=== PATIENT | female | born 1995 ===

== ENCOUNTER 2024-11-02 15:22 | Inpatient (IN) | payer OTHER ==
[~2024-11-02] VITALS: Ht 160 cm; Wt 79.5 kg
[2024-11-02 18:38] VITALS: BP 133/86
[2024-11-02 20:02] VITALS: BP 133/86
[2024-11-02] MEDS ORDERED: Acetaminophen 325 MG TABLET PO PRN (20:05)
[2024-11-02] MEDS ORDERED: DiphenhydrAMINE HCl 50 MG Cap PO PRN (20:05)
[2024-11-02] MEDS ORDERED: DiphenhydrAMINE HCl 50 MG/ML 1ML Vial IV PRN (20:05)
[2024-11-02] MEDS ORDERED: FLU VACC TS2024-25(6MOS UP)/PF 45 MCG/0.5 ML SYRINGE IM ONE (20:05)
[2024-11-02] MEDS ORDERED: Calcium Carbonate 500 MG Tab Chew PO PRN (20:05)
[2024-11-02] MEDS ORDERED: Aluminum Hydroxide 320MG/5ML 473 ML PO PRN (20:05)
[2024-11-02] MEDS ORDERED: Haloperidol Lactate Inj. 5 MG/ML Injection IM PRN (20:05)
[2024-11-02] MEDS ORDERED: LORazepam 2 MG Tab PO PRN (20:10)
[2024-11-02] MEDS ORDERED: Melatonin 3 MG Tab PO PRN (20:10)
[2024-11-02] MEDS ORDERED: TraZODone HCl 50 MG Tab PO PRN (20:10)
[2024-11-02] MEDS ORDERED: Ondansetron 4 MG SoluTab MM PRN (20:10)
[2024-11-02] MEDS ORDERED: LORazepam 2 MG/ML 1ML Injection IM PRN (20:10)
[2024-11-02] MEDS ORDERED: OLANZapine ODT 10 MG Tab MM PRN (20:10)
[2024-11-02] MEDS ORDERED: Polyethylene Glycol 3350 17 gm PO PRN (20:10)
[2024-11-02] MEDS ORDERED: Haloperidol 5 MG Tab PO PRN (20:15)
[2024-11-02] MEDS ORDERED: Ibuprofen 600 MG Tab PO PRN (20:15)
[2024-11-02] MEDS ORDERED: OLANZapine 10 MG Tab PO SCH (21:00)
[2024-11-02] MEDS ORDERED: LEVSOD25 PO (21:47)
[2024-11-02] MEDS ORDERED: CLOZAPINE ODT200 MG PO (21:58)
[2024-11-02] MEDS ORDERED: DIVA500ER PO (22:06)
[2024-11-02] MEDS ORDERED: GABA300 PO (22:13)
[2024-11-02] MEDS ORDERED: Vitamin D1000 UNI1 PO (22:16)
[2024-11-02] MEDS ORDERED: FLUP5 PO (22:24)
--- NOTE | 2024-11-02 22:28 | NUR ---
ADMISSION SUMMARY Pt is 28YO female who identifies as non-binary (she/they) admitted from [facility] for SI. Per ER documentation, Pt has been having SI thoughts for the past 3-4 days. MH Hx includes bipolar I, depression, schizoaffective DO, and PTSD. Medical Hx includes asthma and congenital hearing loss (right ear). Pt endorses a suicide attempt in 2016. Pt lives along, but has frequent contact with their mother, who is thier legal guardian. Pt told their mother that they were feeling suicidal and mother brought pt to ER. Pt is A&O, calm, guarded, and soft spoken. Pt describes their mood as "exhausted," affect is constricted. Pt currently denies SI, HI, and hallucinations. Pt endorses "migrain" headache pain, pointing to the front of their head, rated 8/10w. Pt describes the pain as sharp and stated that they typically get 2-3 headaches per week and that they typically last several hours. PRN APAP given. After admission assessment pt was oriented to the unit and shown to her room. Pt is on q15m monitoring for safety and wellness per unit protocol.
[2024-11-02] MEDS ORDERED: Gabapentin 300 MG Cap PO SCH (22:50)
[2024-11-02] MEDS ORDERED: Divalproex Sodium 500 MG TABCR PO SCH (22:50)
[2024-11-02] MEDS ORDERED: CloZAPine 100 MG Tab PO SCH (22:55)
[2024-11-02] MEDS ORDERED: Albuterol HFA200 ACT/6.7 GM INH INH PRN (22:55)
[2024-11-02] MEDS ORDERED: FLUPHENAZINE HCL 5 MG PO PRN (23:05)
--- NOTE | 2024-11-03 05:43 | NUR ---
SHIFT SUMMARY Pt is A&O, calm, guarded, eye contact is appropriate. Pt states her mood is "exhausted," affect is constricted. Pt denies current SI, HI, and hallucinations. During admission assessment, pt c/o headache pain 8/10w and received PRN acetaminophen. Pt wet to bed after admission assessment. After medications were verified by pharmacy, HS meds were given at approximately 0003. Pt was awakened at about 0545 for lab draw and to administer levothyroxin. Pt returned to bed after taking meds. Staff continues to monitor q15m for safety and wellness.
[2024-11-03] MEDS ORDERED: Levothyroxine Sodium 0.025 MG Tab PO SCH (06:00)
[2024-11-03 07:18] LABS: Alanine Aminotransfer (ALT/SGP 24 U/L (12-78); Albumin, Blood 3.5 g/dL (3.4-5.0); Albumin/Globulin Ratio 0.9 (0.8-1.8); Alk Phos 84 U/L (50-136); Anion Gap 10 mmol/L (3-11); Aspartate Aminotrans (AST/SGOT 17 U/L (12-37); Bilirubin, Total 0.4 mg/dL (0.1-1.0); Blood Urea Nitrogen 13 mg/dL (8-24); Bun/Creatinine Ratio 19.3 (12.0-20.0); CHOL/HDL RATIO 2.9; CO2, Blood 29 mmol/L (21-32); Calcium, Blood 9.6 mg/dL (8.5-10.1); Chloride, Blood 108 mmol/L (98-108); Cholesterol 223 mg/dL (50-200); Creatinine, Blood 0.67 mg/dL (0.40-1.00); Globulin, Blood 3.7 g/dL (2.2-4.0); Glomerular Filtration Rate 123 (60-); Glucose, Blood 85 mg/dL (70-99); HDL Cholesterol 76 mg/dL (>39); LDL/HDL RATIO 1.6; Low Density Lipoprotein Chol 120 mg/dL (0-110); Potassium, Blood 3.8 mmol/L (3.5-5.5); Sodium, Blood 143 mmol/L (136-145); Total Protein, Blood 7.2 g/dL (6.4-8.2); Triglycerides 137 mg/dL (30-140); Very Low Density Lipoprot Chol 27 mg/dL (6-28)
[2024-11-03 08:03] LABS: BASOPHILS ABSOLUTE AUTO 0.02 K/mm3 (0.00-0.23); BASOPHILS PERCENT AUTO 0 % (0-2); EOSINOPHILS PERCENT AUTO 3 % (0-6); Hematocrit 37.9 % (33.0-51.0); Hemoglobin 12.9 g/dL (11.5-16.0); IMMATURE GRAN ABSOLUTE AUTO 0.02 K/mm3 (0.00-0.10); IMMATURE GRAN PERCENT AUTO 0 % (0-1); LYMPHOCYTES ABSOLUTE AUTO 4.47 K/mm3 (0.84-5.20); LYMPHOCYTES PERCENT AUTO 59 % (21-46); MONOCYTES ABSOLUTE AUTO 0.91 K/mm3 (0.16-1.47); MONOCYTES PERCENT AUTO 12 % (4-13); Mean Corpuscular HGB 31.5 pg (26.0-34.0); Mean Corpuscular Volume 93 fL (80-100); Mean Platelet Volume 11.6 fL (9.1-12.4); NEUTROPHILS ABSOLUTE AUTO 1.91 K/mm3 (1.96-9.15); NEUTROPHILS PERCENT AUTO 25 % (41-73); Platelet Count 190 K/mm3 (150-400); Red Blood Cell Count 4.09 M/mm3 (3.80-5.20); White Blood Cell Count 7.53 K/mm3 (4.00-11.30)
[2024-11-03 08:15] VITALS: BP 116/82
[2024-11-03] MEDS ORDERED: Multivitamins 1 Tab PO SCH (09:00)
--- NOTE | 2024-11-03 17:45 | NUR ---
SHIFT SUMMARY PT AxOx4. PLEASANT AND COOPERATIVE WITH CARE. PT DENIED SI/HI AND AVTH THIS SHIFT. SHE HAS BEEN FOLLOWING HER TREATMENT PLAN INCLUDING TAKING MEDS PRESCRIBED AND ATTENDING MILIEU GROUPS. PT DOES NOT MINGLE WITH PEERS MUCH. SHE TENDS TO KEEP TO HERSELF. SHE OFTEN HAS DOWNCAST EYES, IS VERY SOFT SPOKEN AND DOES NOT ENGAGE IN CONVERSATION MUCH AT ALL. PT REPORTS SHE IS SHY AND "THAT'S JUST HOW I AM." PROVIDER IS DOING SOME MEDICATION ADJUSTMENTS INCLUDING STARTING ON DEPAKOTE AND LAMICTAL TONIGHT. PT AWARE. EKG PERFORMED THIS SHIFT. PT IS CURRENTLY SITTING IN SENSORY ROOM, ROCKING IN CHAIR, TALKING ON THE PHONE. PT APPEARS CALM AND RELAXED AT THIS TIME.
[2024-11-03] MEDS ORDERED: LamoTRIgine 25 MG Tab PO SCH (21:00)
[2024-11-03 21:23] VITALS: BP 129/83
--- NOTE | 2024-11-04 04:11 | NUR ---
SHIFT SUMMARY: PATIENT WAS AWAKE IN THE MILIEU AT THE BEGINNING OF THE SHIFT. SHE ADMITTED TO FEELING "SLIGHTLY ANXIOUS". SHE DENIED FEELINGS OF SUICIDAL IDEATION OR SELF HARM. SHE WAS PLEASANT, SHY, COOPERATIVE WITH CARES. SHE WAS COMPLIANT WITH EVENING MEDICATIONS. SHE PARTICIPATED IN SNACK AND FOLLOW UP AT 1999 IN THE DINING AREA. SHE WENT TO BED AFTER SNACK TIME AND WAS NOTED TO BE RESTING QUIETLY IN BED WITH EYES CLOSED AND RESPIRATIONS CONFIRMED. CONTINUING TO MONITOR FOR SAFETY WITH Q15 MINUTE CHECKS.
[2024-11-04 08:15] VITALS: BP 118/79
[2024-11-04 10:53] LABS: Valproic Acid 137.9 ug/mL (50.0-100.0)
[2024-11-04 10:55] LABS: Alanine Aminotransfer (ALT/SGP 29 U/L (12-78); Albumin, Blood 3.7 g/dL (3.4-5.0); Albumin/Globulin Ratio 0.9 (0.8-1.8); Alk Phos 91 U/L (50-136); Aspartate Aminotrans (AST/SGOT 21 U/L (12-37); Bilirubin, Direct <0.1 mg/dL (0.0-0.3); Bilirubin, Indirect Unable to Calculate mg/dL (0.1-0.7); Bilirubin, Total 0.3 mg/dL (0.1-1.0); Total Protein, Blood 7.7 g/dL (6.4-8.2)
--- NOTE | 2024-11-04 16:14 | NUR ---
SHIFT SUMMARY PT A/O X4; DENIES SI, HI, OR ANY HALLUCINATIONS. PT SLEEPING MORE THIS SHIFT AND REPORTS THAT SHE TOOK MELATONIN LAST NIGHT. PT REPORTS THAT SHE DOES NOT NORMALLY TAKE MELATONIN AND FEELS THAT IT MAY HAVE MADE HER SLEEPIER THAN USUAL. PT IN HER ROOM FOR THE MAJORITY OF THE SHIFT. SHE CAME OUT FOR SOME MEALS AND ATTENDED GROUP. PT REPORTED WANTING TO LEAVE THIS SHIFT BUT DID NOT ELABORATE ON WHY SHE WANTS TO LEAVE. PT REDIRECTED AT THIS TIME. MONITORED VIA Q15 ROUNDING FOR SAFETY. WILL REPORT TO ONCOMING RN.
[2024-11-04 20:42] VITALS: BP 122/85
[2024-11-04] MEDS ORDERED: Divalproex Sodium 500 MG TABCR PO SCH (21:00)
--- NOTE | 2024-11-05 04:17 | NUR ---
SHIFT SUMMARY: PATIENT WAS IN THE MILIEU AT THE BEGINNING OF THE SHIFT, SPEAKING WITH RN ABOUT BEING SOMEWHAT ANXIOUS. PATIENT STATED THEY WERE "ABOUT THE SAME YESTERDAY". PATIENT ACKNOWLEDGED THAT THEY WERE GETTING A ROOMMATE, AND STATED, "I'M NOT ANXIOUS ABOUT THAT". THEY PARTICIPATED IN SNACK AND FOLLOW UP GROUP AT 1999. THEY WERE PLEASANT AND COOPERATIVE WITH CARES, INCLUDING EVENING MEDICATIONS. THEY WENT TO BED AFTER SNACK TIME AND RESTED QUIETLY WITH EYES CLOSED AND RESPIRATIONS CONFIRMED. THEY DENIED THOUGHTS OF SUICIDAL IDEATION OR SELF HARMING, AND STATED AWARENESS THAT THEY COULD TALK TO RN AT ANY TIME. THEY STATED THAT THEY WOULD DO SO IF THE NEED AROSE. CONTINUING TO MONITOR FOR SAFETY WITH Q15 MINUTE CHECKS.
[2024-11-05 08:16] VITALS: BP 116/91
--- NOTE | 2024-11-05 15:05 | NUR ---
SHIFT ASSESSMENT: PT DENIED SI, HI, AVH, ANXIETY AND PAIN. PT WAS ORIENTED AND MOOD WAS EVALUATED "OK." PT SPOKE IN A VERY SOFT VOICE AND APPEARED SLEEPY, AND SLEPT ALL MORNING. VOLUNTER DOGS CAME OVER FOR A VISIT AND PT GOT UP AND VISITED WITH THE DOG. PT IS PRESENTLY RESTING IN BED. PT IS COMPLIANT WITH MEDICATIONS.
--- NOTE | 2024-11-05 18:17 | NUR ---
NURSE NOTE PT FOUND BY MHA BANGING HER FORHEAD ON THE WALL NEXT TO HER BED. PT STOPPED FOR A BRIEF MOMENT WHEN THIS RN APPROACHED HER. PT TEARFUL AND UPSET. SHE GRABBED THE BOTTLE OF MOUTHWASH AT AND ATTEMPTED TO START DRINKING IT. THIS RN TOOK BOTTLE FROM PT AND INFORMED HER THAT WAS NOT ALLOWED. PT WAS COMPLIANT WITH THIS. SHE THEN BEGAN TO CRY AND STARTED BANGING HER FISTS ON THE WALL. ASKED PT TO STOP AND PT THEN SAT ON THE FLOOR AND STARTED GRABBING HER FACE AND ROCKING ON THE FLOOR. SHE STARTED SHAKING AND DROOLING. ASKED PT IF SHE WOULD BE WILLING TO TAKE A PRN ANXIETY MEDICATION BY MOUTH AND PT STATED YES. CARROLL RN NOTIFIED DR OF PT BEHAVIOR AND PRN ORDERED. PT THEN ASKED TO CALL HER MOTHER. MOTHER NOTIFIED AND PT REHAN TO SPEAK TO PT ON THE PHONE AND BECAME SLIGHTLY MORE CALM BUT STILL ANXIOUS.
[2024-11-05] MEDS ORDERED: LORazepam 1 MG Tab PO ONE (18:20)
--- NOTE | 2024-11-05 18:51 | NUR ---
NURSING NOTE PT MORE CALM AFTER SPEAKIG TO HER MOTHER ON THE PHONE. CARROLL CHAVEZ MEDICATED PT WITH ATIVAN 2MG PO. PT IS NOW ABLE TO BREATHE AT A NORMAL RATE AND DEPTH AND IS ABLE TO HAVE A CALM CONVERSATION. THIS RN SPOKE TO THE MOTHER ON THE PHONE AND UPDATED HER ON PT'S BEHAVIOR AND INTERVENTION. WILL CONTINUE WITH EVERY 15 MIN SAFETY CHECKS.
[2024-11-05 20:59] VITALS: BP 126/90
[2024-11-05] MEDS ORDERED: Divalproex Sodium 500 MG TABCR PO SCH (21:00)
[2024-11-05] MEDS ORDERED: Lithium Carbonate 300 MG TabCR PO SCH (21:00)
--- NOTE | 2024-11-06 04:39 | NUR ---
PATIENT WAS AWAKE AND IN THE MILIEU AT THE BEGINNING OF THE SHIFT. THEY ASKED TO SPEAK TO RN AND WAS ABLE TO CONVEY NEEDS AND CONCERNS IN A LINEAR MANNER. SHE DID PARTICIPATE IN SNACK AND FOLLOW UP TIME. SHE WAS PLEASANT BUT QUIET. SHE WAS COMPLIANT WITH EVENING MEDICATIONS AND ASKED PERTINENT QUESTIONS. SHE WENT TO BED AND WAS UP AGAIN WHEN ANOTHER PATIENT HAD A MEDICAL ISSUE. SHE COPED WITH IT BY GOING TO THE SENSORY ROOM AND LATER STATED THAT IT WAS HELPFUL FOR HER. SHE GOT UP ONCE AGAIN AND ASKED FOR SUDOKU, AND WAS GIVEN A COUPLE OF PUZZLES TO WORK. SHE DENIED THOUGHTS OF SELF HARM OR SUICIDAL IDEATION. THE REST OF THE SHIFT, SHE WAS IN BED WITH EYES CLOSED AND RESPIRATIONS CONFIRMED. CONTINUING TO MONITOR FOR SAFETY WITH Q15 MINUTE CHECKS.
[2024-11-06 08:22] VITALS: BP 114/81
--- NOTE | 2024-11-06 13:06 | NUR ---
PT WAS RESTING IN BED WHEN SHE WAS APPROACHED FOR THIS INTERVIEW. SHE DENIED FEELINGS OF SELF-HARM, HI, AVH AND PAIN. SHE ENDORSED ANXIETY 6/10w. HER AFFECT IS FLAT. WHEN ASKED ABOUT MOOD AND REPLIED, "SAD...I GOT SUICIDAL AND HAVE TO LEAVE MY HOUSE...MISSING MY ANY. MY TARO CARDS TOLD ME I'M LEAVING ON SATURDAY." PT HAS BEEN ATTENDING GROUPS AND SEEMS TO ENJOY THE MILIEU.
--- NOTE | 2024-11-06 17:10 | NUR ---
PT SAT ON THE PATIO AND WATCHED HER PEERS AND SMILED WHILE WATCHING THEM. SHE ATTENDED GROUPS THIS AFTERNOON AND HAS BEEN COOPERATIVE WITH CARE TODAY.
[2024-11-06] MEDS ORDERED: LamoTRIgine 25 MG Tab PO SCH (21:00)
[2024-11-06] MEDS ORDERED: Lithium Carbonate 300 MG TabCR PO SCH (21:00)
[2024-11-06 21:05] VITALS: BP 120/82
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
[2024-11-07 08:11] VITALS: BP 124/88
[2024-11-07 10:43] LABS: Lithium 0.47 mmol/L (0.60-1.20)
--- NOTE | 2024-11-07 17:26 | NUR ---
SHIFT SUMMARY PT ARRIVED TO [facility] AT 1504, HE CAME OVER FROM ROOM #345 WITH A AND SECURITY. ALL BELONGINGS WERE COLLECTED AND TAGGED WITH PEREZ ELIZABETH. PT SKIN CHECK COMPLETED BY CHRIS AND CLARI RN, NO SKIN ISSUES IDENTIFIED OTHER THAN A COUPLE OF SPOTS FROM IV REMOVAL AT [facility], HE[facility]ING. PT STATES HE WENT TO THE ER ON SATURDAY HE'D BEEN SICK FOR APPROX 2 WEEKS, ON/OFF OVER THAT TIME FRAME WORSENING THIS LAST WEEK. HE FOUND HIMSELF IN TERRIBLE ABD PAIN WITH N/V AND SEVERE DIARREHA. INITIALLY DX WITH PYLEONEPHRITIS AND WAS TO BE D/C HOME FROM ER. HE STS HE WAS IN THE ROOM FOR MANY HOURS AND HAD BECOME VERY DISTRESSED OVER THE IDEA OF GOING HOME AND JUST FELT LIKE HE NEEDED GIVE UP, HE USED THE CALL LIGHT IN AN ATTEMPT TO CHOKE/HANG HIMSELF, THE CALL LIGHT PULLED OUT OF THE WALL, MAKING THE CODE ALARM GO OFF THUS BRINGING STAFF TO HIS ROOM. PT ENDED UP ADMITTED WITH 1:1 SITTER AND EVENTUALLY WAS DIAGNOSED WITH SHIGELA. 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 HE HAS NEVER ATTEMPTED SI AND DOESN'T HAVE A FAMILY HX. HE MOVED TO [facility] FROM [place] FOR A JOB, HE IS NOW RETIRED, STS HE'S 6 MONTH CLEAN FROM METH AND COCAINE, ETOH TO HELP HIM SLEEP ON OCCASION OR JUST SOCIALLY, DENIES EVER USING TOBACCO. HE LIVES IN AN APT UPSTAIRS FROM A SINGLE FAMILY HOME, ALL CHILDREN ARE OUT OF STATE, NO OTHER FAMILY HERE, A S/O CAME FROM [facility] WITH HIM BUT SHE HAS MOVED BACK. HIS ONLY STRESSOR IS FINANCES, HE'S ONLY ON SOCIAL SECURITY AND AFTER HE STARTED DRAWING THAT, THEY CAME AFTER HIM AND STARTED TAKING OUT 30+ YEAR OLD CHILD SUPPORT. HE MIGHT BENIFIT FROM COMPUTER TYPESETTER KEYLINER, HE IS VERY COOPERATIVE AND OPEN ABOUT HIS PAST HX AND HAS ASKED FOR ANY RESOURSES TO HELP HIM MOVE FOREWARD. HE DOESN'T HAVE INSURANCE UNTIL 12/08/24 THROUGH [facility], WOULD LIKE TO HOOK HIM UP WITH A PATIENT ADVOCATE FROM [facility] TO HELP IN HAVING THE CHARGES FOR THIS VISIT BACK COVERED.
--- NOTE | 2024-11-07 18:20 | NUR ---
SHIFT SUMMARY PT HAS BEEN IN HER ROOM MOST ALL DAY OTHER THAN TO HAVE HER MEALS AND SPENT ONE SHORT AMT OF TIME IN THE TV ROOM. COMPLIANT WITH MEDS AND COOPERATIVE, HOWEVER VERY WITHDRAWN WITH AN ALOST WHISPERING VOICE. LATE AFTERNOON PT CALLED THIS RN TO A PRIVATE ROOM TO TALK, SHE STATED "I'VE BEEN HAVING INSULTING THOUGHTS OF OTHER AND IT'S KEEPING ME FROM BEING AROUND ANYONE, I'M AFRAID I'M GOING TO SAY THE THOUGHTS OUT LOUD" AND THAT'S WHY SHE SAYS SHE STAYS IN HER ROOM. SHE STATED SHE TAKES FLUPHENAZINE PRN AT HOME WHEN SHE HAS THESE THOUGHTS, RELAYED INFO TO PROVIDER AND HE STATED TO LEAVE IT FOR TOMORROW. PT NOTIFIED
[2024-11-07 19:38] VITALS: BP 119/87
[2024-11-07] MEDS ORDERED: Lithium Carbonate 450 MG TabCR PO SCH (21:00)
--- NOTE | 2024-11-08 04:09 | NUR ---
SHIFT SUMMARY: PATIENT WAS IN THE MILIEU AT THE BEGINNING OF THE SHIFT. SHE WANTED TO TALK TO RN ALONE. STATED THAT SHE WANTED "TO ". WHEN ASKED HOW HIGH THIS FEELING WAS 1-10, SHE PLACED IT AT AN 8/10. SHE STATED THAT SHE WANTED A PRN, WAS GIVEN VISTARIL WITH GOOD EFFECT. ASKED IF THERE WERE OTHER COPING SKILLS THAT COULD BE USED CONCURRENTLY WITH VISTARIL, PATIENT DECLINED MUSIC, SENSORY ROOM, PHONE CALL, TALKING WITH SELECT STAFF, PUZZLES, TELEVISION. SHE DID GO TO SNACK AND FOLLOW UP BUT NOT FOR LONG, AND WENT TO ROOM. PATIENT STATED THAT SHE WOULD NOT "DO IT" HERE BECAUSE THE PREFERRED METHOD OF OVERDOSING OR CUTTING IS NOT AVAILABLE HERE ON [facility]. SHE STATED THAT THE VISTARIL HAD LESSENED HER SUICIDAL FEELINGS WHICH WERE SECONDARY TO ANXIETY AND DEPRESSION, PER PATIENT. SHE WAS COMPLIANT WITH EVENING MEDICATIONS. SHE WENT TO BED BY 2030 AND WAS NOTED TO BE RESTING QUIETLY WITH EYES CLOSED AND RESPIRATIONS CONFIRMED THROUGHOUT THE REMAINDER OF THE SHIFT. CONTINUING TO MONITOR FOR SAFETY WITH Q15 MINUTE CHECKS.
[2024-11-08 07:55] VITALS: BP 131/94
--- NOTE | 2024-11-08 16:35 | NUR ---
SHIFT SUMMARY PT HAS BEEN SOMEWHAT MORE ENGAGED TODAY OVER YESTERDAY. SHE WAS UP FOR MEALS, SPENT TIME IN THE DAY AREA WORKING A PUZZLE, WATCHED TV AND ATTEDNDED GROUPS. 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 SHE REMAINS ON A Q15 MIN SAFETY CHECK
[2024-11-08] MEDS ORDERED: Lithium Carbonate 300 MG TabCR PO SCH (21:00)
--- NOTE | 2024-11-09 04:13 | NUR ---
SHIFT SUMMARY: PATIENT WAS UP IN THE MILIEU AT THE BEGINNING OF THE SHIFT. SHE WAS SMILING AND TALKING MORE AND STATED "I FEEL LESS DEPRESSED". SHE CALLED HER SISTER X2 AND STATED THAT HER SISTER IS "GOOD AT CHEERING ME UP". SHE PARTICIPATED IN SNACK AND FOLLOW UP GROUP AT 1999. SHE WENT TO BED SHORTLY AFTER. SHE WAS COMPLIANT WITH EVENING MEDICATIONS. SHE WAS PLEASANT AND COOPERATIVE WITH CARES. SHE MADE HER NEEDS KNOWN, UNLIKE THE PAST FEW DAYS. SHE DENIED THOUGHTS OF SI OR SELF HARM AT THIS TIME. SHE WAS IN BED RESTING WITH EYES CLOSED AND RESPIRATIONS CONFIRMED FOR THE REMAINDER OF THE SHIFT. CONTINUING TO MONITOR FOR SAFETY WITH Q15 MINUTE CHECKS.
[2024-11-09 08:30] VITALS: BP 120/76
--- NOTE | 2024-11-09 16:34 | NUR ---
SHIFT SUMMARY PT A/O X4; PLEASANT AND COOPERATIVE WITH CARE. SHE DENIES SI, HI, OR HALLUCINATIONS. SHE REPORTS STILL FEELING A LITTLE DEPRESSED AND TIRED. SHE DID NOT GO TO MORNING GROUP BUT WENT TO THE OTHERS. AIMS ASSESSED AND PT CONTINUES TO HAVE TREMORS IN HER HANDS. NO OTHER ABNORMAL MOVEMENTS NOTED AND PT REPORTS THAT THE TREMORS DO NOT BOTHER HER. PT TO POSSIBLY DC ON EITHER SATURDAY OR SATURDAY. NO VERBALIZED COMPLAINTS THIS SHIFT. WILL REPORT TO ONCOMING RN.
[2024-11-09 18:10] VITALS: BP 123/89
[2024-11-09 19:40] VITALS: BP 122/86
[2024-11-09 21:34] VITALS: BP 112/73
--- NOTE | 2024-11-10 04:08 | NUR ---
SHIFT SUMMARY PT IN SENSORY ROOM AT START OF SHIFT, SHE REPORTED FEELING DIZZY AND THAT SHE HAD A HEADACHE. AIMS ASSESSMENT NOTED TREMORS TO HANDS AND TONGUE. PT DENIED ANY CHEST PAIN. VITAL SIGNS WNL WITH THE EXCEPTION OF A HEART RATE OF 105 BPM. CBG CHECKED AND RESULTED AT 103. PT DENIES ANY SI, HI, THOUGHTS OF SELF HARM OR HALLUCINATIONS. SHE HAS A FLAT AFFECT, SHE IS PLEASANT AND COMPLIANT WITH MEDICATIONS. PT RECEIVED IBUPROFEN FOR ASENCIO. SHE WAS ASSISTED TO DINNING ROOM FOR EVENING SNACK AND THEN WENT BACK TO HER ROOM AND STATED THAT SHE WAS FEELING BETTER. PT HAS APPEARED TO SLEEP WELL, WITH RESPIRATIONS CONFIRMED, TREMORS NOT NOTED WHILE SLEEPING. SHE REMAINS ON A Q15 MINUTE CHECK FOR SAFETY AND UNIT PROTOCOL.
--- NOTE | 2024-11-10 14:58 | NUR ---
HOSPITAL DISCHARGE INFORMATION Patient is member of [facility]ive Community Treatment (ACT) team and is scheduled to meet with Casie Raymond on 11/16/24 at 1300 // [address] [address] // [phone] REJI entered appointment information into patient's discharge packet
--- NOTE | 2024-11-10 16:18 | NUR ---
SHIFT SUMMARY PT A/O X4; PLEASANT AND COOPERATIVE WITH CARE. SHE DENIES SI, HI, OR HALLUCINATIONS. PT IS SOFT SPOKEN AND IN HER ROOM AT THE BEGINNING OF THE SHIFT. THIS MORNING SHE C/O NAUSEA AND HEADACHES. PT MEDICATED FOR PAIN AND NAUSEA. MODERATE TREMORS NOTED IN HANDS AND MILD TREMORS TO TONGUE. PSYCHIATRIST NOTIFIED OF TREMORS, NAUSEA, AND HEADACHES. CHANGES MADE TO MEDICATIONS. SHE ATTENDED MEALS AND A FEW GROUPS THIS SHIFT. SHE IS MONITORED VIA Q15 ROUNDING PER UNIT PROTOCOL AND FOR SAFETY.
[2024-11-10 21:03] VITALS: BP 129/96
--- NOTE | 2024-11-11 04:13 | NUR ---
SHIFT SUMMARY PT IN BED AT START OF SHIFT. SHE DENIES ANY SI, HI, THOUGHTS OF SELF HARM OR HALLUCINATIONS. SHE C/O A HEADACHE THAT IS DUE TO HER "3RD EYE BEING OPEN" AND ALSO C/O NAUSEA. PT COMPLIANT WITH MEDS, RECEIVED PRN TYLENOL, ADVIL, ZOFRAN AND MELATONIN. MODERATE TREMORS TO HANDS NOTED AND MILD TREMORS TO TONGUE THAT ARE SLIGHTLY IMPROVED SINCE MY PREVIOUS SHIFT. TREMORS NOT OBSERVED DURING SLEEP. PT HAS APPEARED TO SLEEP THROUGHOUT THE NIGHT, WITH RESPIRATIONS CONFIRMED. Q15 MINUTE CHECKS PER UNIT PROTOCOL AND FOR SAFETY.
[2024-11-11 07:50] VITALS: BP 112/76
--- NOTE | 2024-11-11 14:08 | NUR ---
SHIFT ASSESSMENT: PT DENIED SI, HI, AVH, ANXIETY AND PAIN. SHE REPORTED THAT HER MOOD IS "OK." SHE WAS RESTING IN BED BEFORE THE INTERVIEW. SHE IS COOPERATIVE WITH CARE. AND ACTIVE IN THE MILIEU. SHE IS PRESENTLY WATCHING A MOVIE WITH PEERS.
--- NOTE | 2024-11-11 18:04 | NUR ---
PT WAS CRYING WHILE SITTING IN HER BED..."THIS IS TOO MUCH...I WANT TO GO HOME!" THIS TECHNICAL CLERK TALKED WTH HER ABOUT DISCHARGE POSSIBLY SATURDAY OR SATURDAY AND BEING STABLE WHEN SHE DOES. WE THEN HAD A CONVERSATION ABOUT CATS, DOGS, SPIDERS, SNAKES AND SHE LAUGHED AT SOME OF THE CONVERSATION. SHE CALMED DOWN AND IS NOW PUTTING A PUZZLE TOGETHER IN THE TV ROOM.
[2024-11-11 20:31] VITALS: BP 111/69
[2024-11-11] MEDS ORDERED: CloZAPine 100 MG Tab PO SCH (21:00)
--- NOTE | 2024-11-12 04:14 | NUR ---
SHIFT SUMMARY AT START OF SHIFT DAYSHIFT MHA REPORTED THAT PT WAS RUBBING A CLOSED BOTTLE OF LOTION ON HER FOREARM. UPON MY ASSESSMENT, PT WAS LAYING IN BED, RESTING WITH EYES CLOSED. PT DENIES ANY SI, HI, THOUGHTS OF SELF HARM OR HALLUCINATIONS. PT STATED SHE WAS HAVING "INTRUSIVE THOUGHTS" BUT WOULD NOT ELABORATE. NO NOTED CHANG TO PT'S FOREARMS AND PT DENIES ANY ATTEMPTS OF SELF HARM. SHE WAS COMPLIANT WITH MEDICATIONS. SHE RECEIVED MELATONIN TO ASSIST WITH SLEEP. SHORTLY AFTER GIVING PT MEDS, SHE REPORTED NAUSEA AND RECEIVED PRN ZOFRAN. PT CONTINUES TO HAVE TREMORS TO HANDS AND TONGUE, ALTHOUGH TONGUE TREMORS ARE VERY MINIMAL. PT DECLINED EVENING SNACK AND STAYED IN BED. Q15 MINUTE CHECKS TO CONTINUE PER SAFETY AND UNIT PROTOCOL.
[2024-11-12 08:13] VITALS: BP 108/74
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
[2024-11-12] MEDS ORDERED: CloZAPine 100 MG Tab PO SCH (21:00)
[2024-11-12] MEDS ORDERED: Prazosin HCl 1 MG Cap PO SCH (21:00)
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
[2024-11-13 07:56] VITALS: BP 224/188
[2024-11-13 09:28] VITALS: BP 120/61
--- NOTE | 2024-11-13 17:17 | NUR ---
SHIFT SUMMARY: PT A/O X4. COMPLIANT WITH CARE. AFFECT IS FLAT AND PT HAS SOME ISOLATION TENDICIES AT TIMES. DID PARTICIPATE IN GROUPS TODAY. DID NOT COMPLAIN ABOUT ANYTHING. HAS SMALL TREMORS IN HANDS AND ARMS AND ON TONGUE. HAS STEADY GAIT. STATES THAT SHE FEELS TIRED IN THE AM, BUT WAS UP IN THE AFTERNOON AND EVENING. TOOK A SHORT NAP. STATED SHE DIDN'T SLEEP WELL LAST NIGHT. WILL CONTINUE TO MONITOR FOR SAFETY.
[2024-11-13 19:09] VITALS: BP 123/78
--- NOTE | 2024-11-14 05:37 | NUR ---
SHIFT SUMMARY Pt is A&O x4, cooperative, sad, eye contact is limited. Pt describes mood as "shitty," affect is blunted. Pt denies SI, HI, hallucinations, and current pain. At the beginning of the shift, pt was in her room lying on her bed. Gold Leaf Laborer woke pt up to give HS meds. Pt's mom called after med pass. During the phone call, pt became visibly upset. After the phone call junior copywriter asked pt what was wrong and pt replied that her mother said she was going to re-home pt's cat. Staff gave pt some hot tea to help soothe her. Pt's tremors seemed more pronounced during and after the phone call. Pt received PRN melatonin during HS med pass. Staff continues to monitor q15m for safety and wellness.
--- NOTE | 2024-11-14 10:05 | NUR ---
PT A/O X4. GOT UP FOR BREAKFAST THEN WENT BACK TO BED. STATED THAT SHE IS "GOOD" PT NOT HEAVILY ENGAGED. PT DENIES TO BE DEPRESSED AND SI, HI, AND AVH. SHE MAY BE DENIYING THESE THINGS SHE WANTS TO GO HOME AND TAKE CARE OF HER CAT, BECAUSE HER MOM SAID THAT SHE HERSELF COULD NOT CARE FOR THE CAT. HAS INTRUSIVE THOUGHTS AT TIMES, BUT DOESN'T UNDERSTAND WHY. WHEN ASKING QUESTIONS FOR INTERVIEW PT RESISTS IN RESPONDING ANSWER IN A SLOW RESPONSE. STATES SHE IS TIRED. TREMORS PRESENT ON HANDS AND ARMS WITH SLIGHT TREMORS ON HER TONGUE. PT STATES THAT THESE TREMORS ARE ALWAYS PRESENT EVEN WHEN AT HOME. WILL CONTINUE TO MONITOR.
[2024-11-14 12:38] VITALS: BP 125/77
[2024-11-14 21:06] VITALS: BP 123/87
--- NOTE | 2024-11-15 05:03 | NUR ---
SHIFT SUMMARY Pt is A&O x4, cooperative, sad, eye contact is limited. Pt stated that her mood is "okay," affect is constricted. Pt denies SI, HI, and hallucinations. Reports no pain. Pt has been isolating to her room. When screenplay writer originally interviewd patient in her room, she presented with sad affect, speaking very softly. Pt has observable tremors in her hands, which she attributes to her medications. Pt came out of her room to make some phone calls from the Sensory Room. After completing her calls, pt became much brighter in affect and eye contact was more direct. Pt stated that her sister will be taking care of her cat, which made her much happier. Pt received PRN melatonin with HS meds. Staff continues to monitor q15m for safety and wellness.
[2024-11-15 09:08] VITALS: BP 124/87
--- NOTE | 2024-11-15 10:14 | NUR ---
PT A/O X4. DEPRESSED MOOD AND SAD. PT IS HAPPY THAT HER CAT "MOCA" WILL BE TAKEN CARE OF BY HER SISTER. PT HAS NO AMBITION TO GET OUT OF BED. OFFERED AND GIVEN SHOWER SUPPLIES. PT STATES THAT SHE "IS TIRED" FLAT AND BLUNTED AFFECT. WHEN ASKED ABOUT INTRUSIVE THOUGHTS HAPPENING, SHE SAID "NOT RIGHT NOW". TREMORS MORE NOTICEABLE TODAY THAN YESTERDAY. PT MED COMPLIANT. REFUSED BREAKFAST. DID FILL OUT COMMUNITY MEETING SHEET AND THEN LEFT THE ROOM. EYE CONTACT LESS TODAY ALSO. WILL CONTINUE TO MONITOR FOR SAFETY AND WELLNESS.
--- NOTE | 2024-11-15 17:01 | NUR ---
SHIFT SUMMARY: PT A/O X4. PT QUITE AND ISOLATED HERSELF IN HER ROOM MOST OF THE DAY. DID COME OUT AND SIT IN THE SENSORY ROOM FOR ABOUT HALF AN HOUR. PT IS HAPPY THAT HER SISTER WILL TAKE CARE OF HER CAT UNTIL SHE GETS HOME. PT SAID THAT SHE WILL BE DISCHARGED TOMORROW. SAID THAT SHE NEEDS TO BE HOME BY 1300 SHE HAS AN APPOINTMENT WITH HER THERAPIST. DENIED INTRUSIVE THOUGHTS THIS MORNING WHEN ASKED. DENIES TO BE SI, HI, AND AVH. WILL LET CEMENT KILN OPERATOR TOMORROW OF WHAT THE PT STATED. PT HAS OBSERVAABLE TREMORS . STATES THAT SHE HAS THESE AT HOME WELL. AVOIDED DIRECT EYE CONTACT TODAY AT TIMES. IS ABLE TO EXPRESS NEEDS. SHOWERED THIS MORNING. MED COMPLIANT. DID REFUSE BREAKFAST BUT ATE LUNCH AND EATING DINNER NOW. WILL CONTINUE TO MONITOR FOR SAFETY AND WELLNESS.
--- NOTE | 2024-11-16 04:54 | NUR ---
SHIFT SUMMARY PATIENT RESTING IN BED AT BEGINNING OF SHIFT. DENIES SI, HI, OR AVH. PATIENT CONTINUES TO HAVE TREMOR LIKE MOVEMENT TO BOTH ARMS AND HANDS, TONGUE HAS UNCONTROLLED MOVEMENT ALSO. NO APPARENT DIFFICULTY WITH AMBULATING OR SITTING AT SIDE OF BED. PATIENT VERBALIZED THAT SHE IS LOOKING FORWARD TO GOING HOME AND BEING WITH HER CAT. PATIENT APPEARS TO BE SLEEPING WELL T/O NIGHT RESP EVEN AND UNLABORED. CONTINUE TO MONITOR Q15MIN
[2024-11-16 08:11] VITALS: BP 116/74
--- NOTE | 2024-11-16 08:49 | NUR ---
PT A/O X4. PT IS IN A BRIGHTER MOOD TODAY AND LESS FLAT IN AFFECT. IS CONGRUNT TO MOOD. PT'S GOAL TODAY IS TO GO HOME. DENIES TO BE SI, HI AND AVH. ENGAGED IN CONVERSATION THIS MORNING. HAS AN THERAPY APPOINTMENT IN [facility] TODAY AT [address] [facility]. MINIAMAL TREMORS NOTICED THIS AM. PT STATES THAT SHE FEELS 'OK AND WANTS TO GO HOME TODAY" WILL CONTINUE POC AND MONITOR FOR SAFETY AND WELLNESS.
--- NOTE | 2024-11-16 09:20 | NUR ---
HOSPITAL DISCHARGE APPOINTMENT Patient is scheduled for hospital discharge appointment with Irene Krishnan DO on 11/19/24 at 1330 at [address] [facility], [address], [place], [place] [address] // [phone] / fax [phone] REJI entered appointment information into patient's discharge packet
[2024-11-16] MEDS ORDERED: CLOZ100 PO (09:33)
[2024-11-16] MEDS ORDERED: LAMO25 PO (09:35)
--- NOTE | 2024-11-16 11:55 | NUR ---
DISCHARGE NOTE: PT DISCHARGE AT 1101. AMBULATED OUT TO RIDE TO TRANSPORT TO [place] WITH BELONGINGS. AND STEADY GAIT. GIVEN DISCHARGE INSTRUCTIONS AND EDUCATION MATERIALS. PRESCRIPTIONS CALLED TO [facility], SPOKE WITH PHARMICIST CAROL @ [phone] DR DWYER CALLED AND ORDER FOR CLOZARIL CHANGED AND RECALLED TO [facility] AND SPOKE WITH PHARMZAYDA PARISH. EYE GLASSES ON PT AT TIME OF DISCHARGE.
== END 2024-11-16 11:01 | disposition home or self-care (01) | DRG 885 ==
LOC: BHU 15:22
PROVIDERS: ADMIT Student in an Organized Health Care Education/Training Program
DX: F31.63 Bipolar disorder, current episode mixed, severe, without psychotic features (principal); R45.851 Suicidal ideations; F60.3 Borderline personality disorder; I10 Essential (primary) hypertension; Z88.0 Allergy status to penicillin; Z79.899 Other long term (current) drug therapy; Z79.890 Hormone replacement therapy; G24.01 Drug induced subacute dyskinesia
CPT/HCPCS: 36415; 80053; 80061; 80076; 80164; 80178; 82140; 82947; 83036; 85025; 93005; 93010; A9270